=== PATIENT | male | born 1950 | race Caucasian/White ===

== ENCOUNTER → 2022-01-01 | Outpatient (CLI) | payer MEDICARE, OTHER | LOC: COL.RAD 13:30 | DX: M75.102 Unspecified rotator cuff tear or rupture of left shoulder, not specified as traumatic (principal); S42.292S Other displaced fracture of upper end of left humerus, sequela ==

== ENCOUNTER → 2022-09-11 | Outpatient (CLI) | payer MEDICARE, OTHER ==
[~2022-09-11] MED LIST: PREDNISONE20 MG PO; SEREVENT IH
== END ==
LOC: COL.PUL 14:59
DX: R06.02 Shortness of breath (principal)